=== PATIENT | male | born 1985 | race African-American/Black ===

== ENCOUNTER → 2021-06-12 | Outpatient (CLI) | payer OTHER ==
--- NOTE | 2021-06-12 16:26 | XR ---
Lumbar spine HISTORY: M [age] 3 views the lumbar spine Lumbar vertebral bodies show preserved height, alignment, and bone mineralization. Disc spaces are re duced at L5-S1, L1-2. No paraspinal mass evident. There is some sacralization at L5 on the right. The re is some spondylosis at L4-5, T12-L1 and L1-2. IMPRESSION: Loss of disc height may reflect underlying degenerative disc disease.
== END | disposition home or self-care (01) ==
LOC: RADXRMAIN 15:24
PROVIDERS: ATTEND Physician Assistant
DX: M54.5 Low back pain (principal)
CPT/HCPCS: 72100

== ENCOUNTER 2021-08-07 11:27 | Day surgery (SDC) | payer OTHER ==
[2021-07-24 15:41] VITALS: BMI 32.1
[~2021-08-07 11:27] MED LIST: LACTATED RINGERS 1,000 ML IV SCH
[2021-08-07 12:14] VITALS: TEMP 97
[2021-08-07] MEDS ORDERED: PROPOFOL 10 MG/ML 20 ML VIAL IV ONE (13:01)
[2021-08-07] MEDS ORDERED: LIDOCAINE 1% INJ 10MG/ML (20 ML MDV) ONE (13:01)
--- NOTE | 2021-08-07 13:17 | P.PCN ---
Date of Procedure: 08/07/21 Procedure(s) Performed: BRIEF HISTORY: Patient is a 36-year-old, pleasant, -Americanemale scheduled for an upper endoscopy for evaluation of severe epigastric pain for the last 5 years duration.. PROCEDURE PERFORMED: Esophagogastroduodenoscopy with biopsy PREOPERATIVE DIAGNOSIS: Chronic epigastric pain of 5 years duration. IV sedation per anesthesia. PROCEDURE: After informed consent was obtained, the patient was brought into the endoscopy unit. IV sedation was administered by Anesthesia under continuous monitoring. Initially the Olympus GIF-140 video endoscope was inserted into the mouth. Esophagus intubated without any difficulty. It was gradually advanced into the stomach and duodenum and carefully examined. The bulb and the second part of the duodenum appeared normal. biopsies were done from the duodenum to rule out celiac disease.The scope at this time was withdrawn to the stomach, adequately insufflated with air, and upon careful examination, mucosa of the antrum, had mild gastritis and biopsies were done from this area. There were scattered erosions noted. Mucosa of the body, cardia and the fundus appeared normal. The scope was then withdrawn into the esophagus. small to moderate size hiatal hernia noted. The GE junction was located at 39 cm from the incisors. The esophagus appeared normal. There were no erosions or ulcerations seen, biopsies were done from the distal esophagus and the patient tolerated the procedure well. IMPRESSION: 1. Antral erosive gastritis. 2. Small to moderate size hiatal hernia but no evidence of esophagitis RECOMMENDATIONS: The findings of this examination were discussed with the patient as well as his family. He was advised to follow with the biopsy results. I recommended a trial of of Prilosec 20 mg twice daily and he was briefly educated about antireflux measures.
[2021-08-07 13:43] VITALS: BP 142/90; PULSE 99; RESP 18
== END 2021-08-07 13:58 | disposition home or self-care (01) ==
LOC: ORWHC2ENDO 11:27
PROVIDERS: ATTEND Internal Medicine Gastroenterology
DX: K29.50 Unspecified chronic gastritis without bleeding (principal); B96.81 Helicobacter pylori [H. pylori] as the cause of diseases classified elsewhere; F41.9 Anxiety disorder, unspecified; F32.9 Major depressive disorder, single episode, unspecified; Z91.048 Other nonmedicinal substance allergy status
CPT/HCPCS: 88305; 88342; 43239; J2001; J2704

== ENCOUNTER → 2022-04-23 | Outpatient (CLI) | payer OTHER ==
--- NOTE | 2022-04-23 17:04 | CONS ---
CONSULTATION DATE OF SERVICE: 04/23/2022 This 37-year-old gentleman has been evaluated in [facility] for possible obstructive sleep apnea-hypopnea syndrome. HISTORY OF PRESENT ILLNESS/SLEEP-WAKE EVALUATION: Patient's usual sleep schedule on weekdays is from 10 a.m. to 4:30 or 5 p.m. The patient works as a shift commander worker. On weekends it is from the middle of the day 5 or 6 p.m. He does have problems with falling asleep and has a TV set in the bedroom. He has loud snoring and witnessed episodes of stopped breathing during sleep. The patient wakes up from sleep up to 5 times with a dry mouth, panic attacks, gasping for air, sweating, choking, and up to 2 episodes of nocturia. He feel sleepiness. [place] Sleepiness Scale is significantly increased at 16. He worries about his sleep and has problems with memory and anxiety. PAST MEDICAL HISTORY: Positive for acid reflux, back problems, bronchitis. PAST SURGICAL HISTORY: None. FAMILY HISTORY: Hypertension, epilepsy, anemia, during sleep, diabetes. REVIEW OF SYSTEMS: Loud snoring, multiple awakenings from sleep, sleepiness during the day. [place] Sleepiness Scale 16. No fevers. No double vision. No recent chest pain. No shortness of breath. No abdominal pain. No bleeding episodes. No blood in the urine. No seizure episodes. SOCIAL HISTORY: Negative for smoking or using alcohol. PHYSICAL EXAMINATION: GENERAL: Pleasant gentleman without distress. VITAL SIGNS: BP 142/84, HR 84, RR 20, height 5 feet 10 inches, weight 220 pounds, body mass index 31, temperature 97.4, oxygen saturation at room air around 100%. HEENT: PERRLA, EOMI, evaluation of oropharynx showed tongue protrudes midline. Wide pillars. Moderately low position of soft palate; Mallampati III. NECK: Supple, no JVD. Thyroid is not palpable. Neck measures 17-1/2 inches in circumference. LUNGS: Clear to percussion and to auscultation. Good air exchange. No wheezing or rhonchi. HEART: S1, S2 regular. No murmurs, gallops, or rubs. ABDOMEN: Soft and nontender. Bowel sounds are present. No organomegaly appreciated. EXTREMITIES: No clubbing or cyanosis. RETAIL SALES SPECIALIST: Awake, alert, and oriented X3. Cranial nerves 2 to 7 intact. There is no fasciculation or atrophy. noted. No focal deficits observed. IMPRESSION: 1. Loud snoring, witnessed episodes of stopped breathing during sleep, multiple awakenings from sleep, small oropharyngeal air space, wide neck, 17-1/2 inches in circumference, sleepiness; obstructive sleep apnea-hypopnea syndrome. 2. Significant sleepiness with [place] Sleepiness Scale 16, dictating necessity to include hypersomnia in differential diagnosis and narcolepsy in differential diagnosis. 3. lieutenant shift supervisor worker. 4. Mild obesity. 5. Acid reflux. 6. History of bronchitis. 7. Status post back injury. PLAN: 1. Polysomnography for evaluation of patient's breathing during sleep. 2. CPAP/BiPAP titration if sleep study confirms obstructive sleep apnea-hypopnea syndrome. 3. Preferable position during sleep on the side. 4. No driving if patient feels any sleepiness. 5. I will see patient for follow up visit to explain results of testing and following plan. Thank you very much for referring this patient for consultation. Sincerely, Tanmay Moran MD, PhD, FAASM Diplomat of [place] [employer] Sleep Medicine Board of [place] [employer] C++ Quant Developer of [facility] [place] MMODL / IJN: [id number] /
== END | disposition home or self-care (01) ==
LOC: SLEEP 14:08
PROVIDERS: ATTEND Internal Medicine
DX: G47.33 Obstructive sleep apnea (adult) (pediatric) (principal); E66.9 Obesity, unspecified; K21.9 Gastro-esophageal reflux disease without esophagitis; Z87.09 Personal history of other diseases of the respiratory system; Z98.890 Other specified postprocedural states